=== PATIENT | female | born 2000 | race Hispanic/Latino ===

== ENCOUNTER 2020-06-09 19:40 | Inpatient (IN) | payer MEDICAID ==
[2020-06-09] MEDS ORDERED: HYDROcodone/ACETAMINOPHEN 10-325MG TAB PO PRN (20:51)
[2020-06-09 21:06] LABS: Bilirubin,Urine NEG (Negative); Blood,Urine SM (Negative); Color,Urine Amber (Yellow); Mucus,Urine 3+ /HPF
[2020-06-09] MEDS ORDERED: miSOPROStol 200 MCG TAB PR PRN (21:42)
[2020-06-09] MEDS ORDERED: OXYTOCIN 10 UNIT/1 ML INJ IM PRN (21:42)
[2020-06-09] MEDS ORDERED: ePHEDrine SULFATE 50 MG/1 ML INJ IV PRN (21:42)
[2020-06-09] MEDS ORDERED: LIDOCAINE (2%) 20 MG/1 ML VIAL 20 ML MDV INFILTRATI ONE (21:42)
[2020-06-09] MEDS ORDERED: MINERAL OIL 30 ML ORAL LIQD PO PRN (21:42)
[2020-06-09] MEDS ORDERED: TERBUTALINE 1 MG/1 ML INJ SUB-Q PRN (21:42)
[2020-06-09] MEDS ORDERED: AMPICILLIN/NS 2 GM/100 ML 2 GM/100 ML BAG IV ONE (21:42)
[2020-06-09] MEDS ORDERED: fentaNYL 100 MCG/2 ML INJ IV PRN (21:42)
[2020-06-09] MEDS ORDERED: ONDANSETRON 4 MG/2 ML INJ IV PRN (21:42)
[2020-06-09] MEDS ORDERED: ACETAMINOPHEN 325 MG TAB PO PRN (21:42)
[2020-06-09] MEDS ORDERED: CARBOPROST TROMETHAMINE 250 MCG/1 ML INJ IM PRN (21:42)
[2020-06-09] MEDS ORDERED: OXYTOCIN 20 UNIT/1000ML DRIP 20 UNITS/1,000 ML BAG IV SCH (22:00)
[2020-06-09] MEDS ORDERED: OXYTOCIN DRIP 30 UNITS/500 ML BAG IV SCH (22:00)
--- NOTE | 2020-06-09 22:00 | History and Physical Report ---
History of Present Illness Date of examination: 06/09/20 Date of admission: 06/09/2020 Chief complaint: active labor IUP @ 41.1 wks History of present illness: EDC Calculations by LMP: 06/01/2020 Past History : 1 Term Births: 0 Premature Births: 0 Living Children: 0 Para: 0 Mult. Births: 0 Prev : 0 Aborta: 0 Elect. Ab: 0 Spont. 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 Infection History Hx of STD: none HIV Risk Eval: no Personal hx. of genital herpes: no Genetic History Congenital Heart Defect: Mom: no Dad: no Megan Disease: Mom: no Dad: no Thalassemia Mom: no Dad: no Neural Tube Defect Mom: no Dad: no Down's Syndrome Mom: no Dad: no Butch-Sachs Mom: no Dad: no Sickle Cell Disease/Trait Mom: no Dad: no Hemophilia Mom: no Dad: no Muscular Dystrophy Mom: no Dad: no Cystic Fibrosis Mom: no Dad: no [place] Chorea Mom: no Dad: no Mental Retardation Mom: no Dad: no Fragile X Mom: no Dad: no Other Genetic/Chromosomal Disorder Mom: no Dad: no Child w/other defect Mom: no Dad: no Enviromental Exposures Xray Exposure: no Medication, drug, or alcohol use since LMP: no Chemical/Other Exposure: no Exposure to Cat Liter: no Current Allergies: No known allergies Past History Past Medical History: no pertinent history Past Surgical History: 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) Family/Genetic History: none Social history: no significant social history - Obstetrical History Expected Date of Delivery: 06/01/20 Actual Gestation: 41 Week(s) 1 Day(s) : 1 Para: 0 Hx # Term Pregnancies: 0 Number of Pregnancies: 0 Spontaneous Abortions: 0 Induced : 0 Number of Living Children: 0 Medications and Allergies Allergies Allergy/AdvReac Type Severity Reaction Status Date / Time No Known Allergies Allergy Unverified 06/09/20 20:48 Active Meds: Active Medications Acetaminophen (Tylenol) 650 mg PO Q4H PRN PRN Reason: Pain, Mild (1-3) Carboprost Tromethamine (Hemabate) 250 mcg IM ONCE PRN PRN Reason: Uterine Bleeding Ephedrine Sulfate (Ephedrine Sulfate) 10 mg IV Q2M PRN PRN Reason: Hypotension Fentanyl (Sublimaze) 100 mcg IV Q2H PRN PRN Reason: Pain,Severe (7-10) LABOR PAIN Oxytocin/Sodium Chloride (Pitocin/Ns 30 Unit/500ml) 30 units in 500 mls @ 4 mls/hr IV TITR MICHAEL; Protocol Lactated Ringer's (Lactated Ringers) 1,000 mls @ 125 mls/hr IV DIRECT MICHAEL Oxytocin/Sodium Chloride (Pitocin/Ns 20 Unit/1000ml Drip) 20 units in 1,000 mls @ 125 mls/hr IV DIRECT MICHAEL Ampicillin Sodium (Ampicillin/Ns 2 Gm/100 Ml) 2 gm in 100 mls @ 100 mls/hr IV ONCE ONE; Protocol Stop: 06/09/20 22:41 Ampicillin Sodium (Ampicillin/Ns 1 Gm/50 Ml) 1 gm in 50 mls @ 100 mls/hr IV Q4HR MICHAEL; Protocol Mineral Oil (Mineral Oil) 30 ml PO QHS PRN PRN Reason: Constipation Misoprostol (Cytotec) 800 mcg NV ONCE PRN PRN Reason: Uterine Bleeding Ondansetron HCl (Zofran) 4 mg IV Q8H PRN PRN Reason: Nausea And Vomiting Oxytocin (Pitocin) 10 unit IM ONCE PRN PRN Reason: Uterine Bleeding Terbutaline Sulfate (Brethine) 0.25 mg SUB-Q ONCE PRN PRN Reason: Hyperstimulation/Hypertonicity - Vital Signs Vital signs: Vital Signs Pulse BP Pulse Ox 101 H 139/91 96 06/09/20 20:11 06/09/20 20:11 06/09/20 20:11 Temp Pulse Resp BP Pulse Ox 97.6 F 91 H 18 125/84 95 06/09/20 20:16 06/09/20 21:53 06/09/20 20:16 06/09/20 21:44 06/09/20 21:53 - Physical Exam Cardiovascular: Regular rate Lungs: Positive: Normal air movement Abdomen: Positive: normal appearance, soft Genitourinary (Female): Positive: normal external genitalia Vulva: both: normal Vagina: Positive: normal moisture Uterus: Positive: normal size Extremities: Positive: normal - Obstetrical FHR: auscultation normal Uterine Contraction Monitor Mode: External Cervical Dilatation: 1 Cervical Effacement Percentage: 90 Uterine Contraction Frequency (min): 3 Uterine Contraction Pattern: Regular Results Result Diagrams: 06/09/20 22:35 06/09/20 22:35 Abnormal lab results 06/09/20 Range/Units Unknown Urine WBC (Auto) 12.0 H (0.0-6.0) /HPF U Epithel Cells (Auto) 25.0 H (0-13.0) /HPF GBS positive urinalysis in office. All other labs normal. Assessment and Plan S: pt breathing through contractions, desires pain management, supportive SO at bedside O: VSS AF, SVE per RN, FHT's CAT 1 A: Postdates gestation @ 41.1 wks, Active Labor, GBS bacteruria P: Epidural PRN, Pitocin augmentation PRN, Ampicillin per order, anticipate ~Bran VALERA/Sarah Gonzalez CNM - Patient Problems (1) Active labor Current Visit: Yes Status: Acute Plan to address problem: continue labor management per protocol. Pt desires pain management as ordered. give Epidural PRN. start Pitocin augmentation PRN. anticipate (2) Post-dates Current Visit: Yes Status: Acute Plan to address problem: admission to labor & delivery. Augment PRN. will continue to monitor continuously. anticipate vaginal delivery (3) GBS bacteriuria Current Visit: Yes Status: Acute Plan to address problem: start Ampicillin as ordered and continue until delivery
[2020-06-09] MEDS: LACTATED RINGERS 1,000 ML IV SCH (22:48)
[2020-06-09 22:56] LABS: Hematocrit 34.1 % (30.3-42.9); Hemoglobin 11.2 gm/dl (10.1-14.3); Mean Corpuscular HGB Conc 33 % (30-34); Mean Corpuscular Volume 71 fl (79-97); Platelet Count 341 K/mm3 (140-440); Red Blood Count 4.81 M/mm3 (3.65-5.03); Red Cell Distribution Width 18.4 % (13.2-15.2)
[2020-06-09 23:11] LABS: Alanine Aminotransferase 7 units/L (7-56); Uric Acid 4.8 mg/dL (3.5-7.6)
--- NOTE | 2020-06-09 23:31 | Anesthesia Consultation ---
Anesthesia Consult and Med Hx Date of service: 06/09/20 - Airway Anesthetic Teeth Evaluation: Good ROM Head & Neck: Adequate Mental/Hyoid Distance: Adequate Mallampati Class: Class II Intubation Access Assessment: Probably Good - Pulmonary Exam CTA: Yes - Cardiac Exam Cardiac Exam: RRR - Pre-Operative Health Status ASA Pre-Surgery Classification: ASA2 Proposed Anesthetic Plan: Epidural - Pulmonary Hx Smoking: No Hx Asthma: No Hx Sleep Apnea: No - Cardiovascular System Hx Hypertension: No - Central Nervous System Hx Seizures: No Hx Psychiatric Problems: No - Gastrointestinal Hx Gastroesophageal Reflux Disease: No - Endocrine Hx Renal Disease: No Hx Hypothyroidism: No Hx Hyperthyroidism: No - Hematic Hx Anemia: No Hx Sickle Cell Disease: No - Other Systems Hx Alcohol Use: No
[2020-06-10] MEDS ORDERED: ONDANSETRON 4 MG/2 ML INJ IV PRN ×2 (00:42→15:50)
[2020-06-10] MEDS ORDERED: NALOXONE 2 MG/2 ML INJ IV PRN (00:42)
[2020-06-10] MEDS ORDERED: NalbUPHINE 10 MG/1 ML INJ IV PRN (00:42)
[2020-06-10] MEDS ORDERED: diphenhydrAMINE 50 MG/ML VIAL IV PRN (00:42)
--- NOTE | 2020-06-10 00:42 | Progress Note ---
Labor Epidural - Labor Epidural Start Time: 00:05 Stop Time: 00:25 Performed by:: JAHAIRA CARRENO (Lashon NARANJO) Procedure: Patient is requesting combined spinal epidural for labor and pain. H&P, labs were reviewed. All questions and concerns were answered. Informed consent was obtained. Timeout performed. Patient in sitting position on side of bed. Sterile prep and drape was performed. 3 mL 1% lidocaine skin wheal at L [3]-L [4]. 18-gauge Touhy epidural needle advanced to [id number] using air technique, [7cm]. 27-gauge spinal needle advanced, positive free-flowing CSF. Spinal dose of [Marcaine3.75mg]. Epidural catheter advanced to [13] cm. [-] Aspiration, [-] test dose. Sterile dressing applied. Patient tolerated procedure well.
[2020-06-10] MEDS: fentaNYL-BUPIV 2 MCG/ML-0.125% 200 MCG/100 ML BAG EPIDURAL SCH ×2 (01:13→08:33)
[2020-06-10] MEDS: LACTATED RINGERS 1,000 ML IV SCH ×2 (01:52→01:53)
[2020-06-10] MEDS: AMPICILLIN/NS 1 GM/50 ML 1 GM/50 ML BAG IV SCH ×2 (02:57→06:50)
[2020-06-10] MEDS ORDERED: SODIUM CHLORIDE 0.9% 1000 ML 1,000 ML ONE (04:27)
--- NOTE | 2020-06-10 04:58 | Event Note ---
Date: 06/10/20 IUP @ 41.2 wks, pt sleeping comfortably with epidural, plan of care reviewed, no complaints or questions verbalized, regular contractions Q3mins, CAT 2 FHT's, SVE 2/90/-2, AROM thick meconium, internal monitors placed, start amnioinfusion with 300ml bolus then 80ml/hr, start Pitocin as ordered, continue labor management, anticipate vaginal delivery. Mary Jo Gonzalez CNM notified. Jillian VALERA
--- NOTE | 2020-06-10 08:32 | Event Note ---
Date: 06/10/20 SVE 9/100%/+2, pt reports vaginal pressure, anticipate
--- NOTE | 2020-06-10 10:43 | Procedure Note ---
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: MARLYN JON (Jillian Vallecillo SNM, Lubna Redding SNM) Estimated blood loss: 500cc - Vaginal Delivery presentation: vertex Delivery position: OA (DEVEN) Intrapartum events: meconium Delivery induction: none Delivery augmentation: rupture of membranes, pitocin Delivery monitor: internal FHT, internal uterine Route of delivery: Delivery placenta: spontaneous Delivery cord: nuchal cord, 3 umbilical vessels Episiotomy: none Delivery laceration: 2nd degree Delivery repair: vicryl Anesthesia: epidural Delivery comments: viable female delivered over intact perineum, DEVEN, nuchal x1 easily reduced, baby vigorous, placed skin to skin on maternal abdomen, 3 vessel cord clamped and cut after cessation of pulsation. placenta delivered intact and complete, thompson, cord blood collected, 2nd degree repaired in usual fashion, EBL 500ml (mostly prior to delivery of placenta), Pitocin to IVF. placenta sent to pathology. apgars 8,9. [id number]. mother and infant LDR stable, bonding well. all counts correct - Infant A at 1 minute: 8 at 5 minutes: 9 Infant Gender: Female (Baby girl "Nancy", 6lbs 5oz)
[2020-06-10] MEDS ORDERED: BENZOCAINE/MENTHOL 20/0.5% TOP SPRAY 56 GM TP PRN (11:38)
[2020-06-10] MEDS ORDERED: IBUPROFEN 600 MG TAB PO SCH (15:50)
[2020-06-10] MEDS ORDERED: PROMETHAZINE 25 MG TAB PO PRN (15:50)
[2020-06-10] MEDS ORDERED: ACETAMINOPHEN 325 MG TAB PO PRN (15:50)
[2020-06-10] MEDS ORDERED: LANOLIN/ZINC/DIMETHICONE (LANSINOH) 7 GM TP PRN (15:50)
[2020-06-10] MEDS ORDERED: WITCH HAZEL/ GLYCERIN PAD TP PRN (15:50)
[2020-06-10] MEDS ORDERED: MAGNESIUM HYDROXIDE (MOM) ORAL LIQD UDC PO PRN (15:50)
[2020-06-10] MEDS ORDERED: PROMETHAZINE 25 MG RECT SUPP PR PRN (15:50)
[2020-06-10] MEDS ORDERED: diphenhydrAMINE 25 MG CAP PO PRN (15:50)
[2020-06-10] MEDS ORDERED: FERROUS SULFATE 325 MG TAB PO SCH (22:00)
[2020-06-11] MEDS: IBUPROFEN 800 MG TAB PO SCH ×3 (01:07→12:52)
[2020-06-11] MEDS: DOCUSATE SODIUM 100 MG CAP PO SCH ×2 (01:07→10:31)
[2020-06-11 05:35] LABS: Hematocrit 27.7 % (30.3-42.9); Hemoglobin 8.7 gm/dl (10.1-14.3)
--- NOTE | 2020-06-11 06:56 | Discharge Summary ---
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 P: d/c today with instructions RTO 4 weeks PP care. RX po iron and colace @ d/c Condition at discharge: Good Disposition: DC-01 TO HOME OR SELFCARE - Discharge Diagnoses (1) (normal spontaneous vaginal delivery) Status: Acute Comment: RTO 4 weeks PP care (2) Anemia Status: Acute Qualifiers: Anemia type: iron deficiency Iron deficiency anemia type: unspecified iron deficiency Qualified Code(s): D50.9 - Iron deficiency anemia, unspecified Comment: RX po iron provided @ d/c Plan - Provider Discharge Summary Activity: routine, no sex for 6 weeks, no heavy lifting 4 weeks, no strenuous exercise Diet: routine Instructions: routine Additional instructions: [] Smoking cessation referral if applicable(refer to patient education folder for contact #) [] Refer to [facility]'s [facility] Booklet Call your doctor immediately for: * Fever > 100.5 * Heavy vaginal bleeding ( >1 pad per hour) * Severe persistent headache * Shortness of breath * Reddened, hot, painful area to leg or breast * Drainage or odor from incision. * Keep incision clean and dry at all times and follow doctor's instructions regarding bathing/showering - Follow up plan Follow up: PRIMARY CARE, [Primary Care Provider] - 7 Days MARIAN ECHOLS CNM [Advanced Practice Nurse] - 07/09/20 (Congratulations! Please call [phone] to schedule your visit in 4 weeks. Take medications as prescribed. You should not drive for atleast 2 weeks. Showers only no tub baths. Call with any concerns.)
[2020-06-11] MEDS ORDERED: PRENATAL VIT27-FE FUMARATE-FOLIC ACID VIT TAB PO SCH (10:00)
[2020-06-11] MEDS ORDERED: DIPHtheria,PERTUSSIS(ACELL),TETANUS VACCINE/PF 0.5 ML VIAL IM ONE (11:36)
--- NOTE | 2020-06-11 15:07 | Post Anesthesia Evaluation ---
- Post Anesthesia Evaluation Patient Participated: Yes Airway Patent: Yes Stable Respiratory Function: Yes Nausea/Vomiting: No Temp > 96.8F: Yes Pain Manageable: Yes Adequeate Hydration: Yes Anesthesia Complications: No Block Receding Appropriately: Yes
[2020-06-11 15:56] VITALS: BP 141/85
== END 2020-06-11 18:29 | disposition home or self-care (01) | DRG 775 ==
LOC: TRG 19:40 → APU 19:41 → TRG 23:09 → LD 23:10 → OB 06-10 13:39
PROVIDERS: ADMIT Obstetrics & Gynecology; ATTEND Obstetrics & Gynecology
PROC: 10E0XZZ Delivery of Products of Conception, External Approach (ICD-10-PCS; principal; 2020-06-10)
PROC: 0KQM0ZZ Repair Perineum Muscle, Open Approach (ICD-10-PCS; 2020-06-10)
PROC: 3E0R3BZ Introduction of Anesthetic Agent into Spinal Canal, Percutaneous Approach (ICD-10-PCS; 2020-06-10)
PROC: 00HU33Z Insertion of Infusion Device into Spinal Canal, Percutaneous Approach (ICD-10-PCS; 2020-06-10)
PROC: 10907ZC Drainage of Amniotic Fluid, Therapeutic from Products of Conception, Via Natural or Artificial Opening (ICD-10-PCS; 2020-06-10)
PROC: 3E0E7KZ Introduction of Other Diagnostic Substance into Products of Conception, Via Natural or Artificial Opening (ICD-10-PCS; 2020-06-10)
PROC: 3E0234Z Introduction of Serum, Toxoid and Vaccine into Muscle, Percutaneous Approach (ICD-10-PCS; 2020-06-11)
DX: O77.0 Labor and delivery complicated by meconium in amniotic fluid (principal); D50.9 Iron deficiency anemia, unspecified; O99.02 Anemia complicating childbirth; O69.1XX0 Labor and delivery complicated by cord around neck, with compression, not applicable or unspecified; O48.0 Post-term pregnancy; O99.824 Streptococcus B carrier state complicating childbirth; O70.1 Second degree perineal laceration during delivery; Z37.0 Single live birth; Z3A.41 41 weeks gestation of pregnancy
CPT/HCPCS: 36415; 81001; 82565; 83615; 84450; 84460; 84550; 85014; 85018; 85027; 86592; 86850; 86900; 86901; 87086; 88307; 90715; 96361; 96365; 96374; G0378; A6250; J0290; J2590; J3010; J7030; J7120